=== PATIENT | male | born 1955 | race Caucasian/White ===

== ENCOUNTER 2021-08-08 21:43 | Inpatient (IN) | payer MEDICARE, BC ==
[2021-08-08 22:40] LABS: ALT (SGPT) 26 U/L (8-55); AST (SGOT) 24 U/L (5-34); Albumin 3.5 g/dL (3.4-4.8); Alkaline Phosphatase 83 U/L (40-110); Anion Gap 17 mmol/L (10-20); BUN (Urea Nitrogen) 22 mg/dL (8.4-25.7); Bilirubin, Total 1.3 mg/dL (0.2-1.2); Calc. Creatinine Clearance 0 mL/min (70-130); Calcium 8.4 mg/dL (7.8-10.44); Carbon Dioxide 17 mmol/L (23-31); Chloride 103 mmol/L (98-107); Globulin 2.3 g/dL (2.4-3.5); Glucose 221 mg/dL (80-115); Lipase 7 U/L (8-78); Potassium 4.6 mmol/L (3.5-5.1); Protein, Total 5.8 g/dL (5.8-8.1); Sodium 132 mmol/L (136-145)
[2021-08-08 22:59] LABS: Hemoglobin 11.3 g/dL (13.5-17.5); Mean Corpuscular HGB CONC 34.5 g/dL (32.0-36.0); Mean Corpuscular Hemoglobin 32.1 pg (27.0-33.0); Mean Corpuscular Volume 93.2 fl (81.2-95.1); Mean Platelet Volume 10.8 fl (7.4-10.4); RBC Distribution Width 16.7 % (11.5-14.5); Red Blood Cell (RBC) Count 3.52 10x6/uL (4.32-5.72); White Blood Cell (WBC) Count 1.2 10x3/uL (3.5-10.5)
[2021-08-08 23:03] LABS: Platelet Count 36 10x3/uL (150-450)
[2021-08-08 23:08] LABS: MDiff Complete? YES
[2021-08-08 23:21] LABS: Band 11 % (5-11); Lymphocytes 32 % (21-51); Monocytes 19 % (0-10); Neutrophil 36 % (42-75); Reactive Lymphocytes 1 % (0-10)
[2021-08-08 23:23] LABS: Platelet Morphology Comment Appears Decreased; Reflex for Review?? YES; Tear Drops SLIGHT = 2-5 cells (100X) (0-1/hpf)
[2021-08-09] MEDS ORDERED: Ondansetron PF 4 MG/2 ML Vial ONE (01:37)
[2021-08-09] MEDS ORDERED: Acetaminophen 325 MG TAB PO PRN (02:30)
[2021-08-09] MEDS ORDERED: Morphine 4 MG/ML VIAL SLOW IVP PRN (02:34)
[2021-08-09] MEDS ORDERED: Ondansetron PF 4 MG/2 ML Vial IVP PRN (02:34)
[2021-08-09] MEDS ORDERED: Promethazine HCl 25 MG in Sodium Chloride 0.9% 50 ML IVPB PRN (02:41)
[2021-08-09 02:42] LABS: SARS-CoV-2 NAA Rapid Test Not Detected (NotDetected)
[2021-08-09 03:35] VITALS: BMI 23.6
[2021-08-09] MEDS: Sodium Chloride 0.9% 1,000 ML IV SCH ×3 (03:38→23:51)
[2021-08-09] MEDS: Cefepime 2 GM in Sodium Chloride 0.9% 100 ML IVPB SCH ×3 (03:43→19:53)
[2021-08-09] MEDS ORDERED: Vancomycin 1.5 GRAM/300 ML BAG 1.5 GM in Premix Bag 1 BAG IVPB SCH (03:45)
[2021-08-09 04:44] LABS: Hemoglobin 10.3 g/dL (13.5-17.5); Mean Corpuscular HGB CONC 33.9 g/dL (32.0-36.0); Mean Corpuscular Hemoglobin 32.3 pg (27.0-33.0); Mean Corpuscular Volume 95.3 fl (81.2-95.1); Mean Platelet Volume 11.6 fl (7.4-10.4); RBC Distribution Width 16.9 % (11.5-14.5); Red Blood Cell (RBC) Count 3.19 10x6/uL (4.32-5.72); White Blood Cell (WBC) Count 1.2 10x3/uL (3.5-10.5)
[2021-08-09 04:45] LABS: Platelet Count 31 10x3/uL (150-450)
[2021-08-09 04:57] LABS: Anion Gap 16 mmol/L (10-20); BUN (Urea Nitrogen) 20 mg/dL (8.4-25.7); Calc. Creatinine Clearance 75 mL/min (70-130); Calcium 7.7 mg/dL (7.8-10.44); Carbon Dioxide 18 mmol/L (23-31); Chloride 105 mmol/L (98-107); Glucose 173 mg/dL (80-115); Magnesium 1.9 mg/dL (1.6-2.6); Potassium 4.4 mmol/L (3.5-5.1); Sodium 135 mmol/L (136-145)
[2021-08-09 05:10] LABS: MDiff Complete? YES
[2021-08-09 05:17] LABS: Band 22 % (5-11); Lymphocytes 37 % (21-51); Metamyelocyte 1 % (0-0); Monocytes 15 % (0-10); Neutrophil 22 % (42-75); Reactive Lymphocytes 2 % (0-10)
[2021-08-09 05:20] LABS: Dohle Bodies SLIGHT; Platelet Morphology Comment Appears Decreased; Tear Drops SLIGHT = 2-5 cells (100X) (0-1/hpf); Toxic Granulation SLIGHT
[2021-08-09 06:11] LABS: Lactic Acid 2.2 mmol/L (0.5-2.2)
[2021-08-09 06:36] LABS: Bilirubin Neg (Negative); Blood, Urine Negative (Negative); Clarity Slightly Cloudy (Clear); Glucose, Urine (Dipstick) 50 mg/dL (Negative); Ketone, Urine Negative (Negative); Leukocyte Negative (Negative); Nitrite Negative (Negative); Protein, Urine (Dipstick) 15 mg/dl (Neg-Trace); Specific Gravity, Urine 1.015 (1.002-1.036); Urobilinogen Normal mg/dL (Less than 2)
[2021-08-09 06:44] LABS: Bacteria/HPF None Seen HPF (None Seen); RBC/HPF 0-3 HPF (0-3); Squamous Epithelial None Seen HPF (0-3); WBC/HPF 0-3 HPF (0-3)
[2021-08-09 06:52] LABS: RBC Morphology Normal
[2021-08-09] MEDS ORDERED: Metoclopramide HCl 10 MG/2 ML VIAL IVP PRN ×2 (08:53→10:08)
[2021-08-09] MEDS ORDERED: Metoclopramide HCl 10 MG/2 ML VIAL IVP SCH (10:15)
[2021-08-09] MEDS: Ondansetron PF 4 MG/2 ML Vial IVP SCH ×3 (11:26→23:52)
[2021-08-09] MEDS ORDERED: VANCOMYCIN 1.25 GM/250 ML BAG 1.25 GM in Premix Bag 1 BAG IVPB SCH (16:00)
[2021-08-10] MEDS ORDERED: Vancomycin 1.5 GRAM/300 ML BAG 1.5 GM in Premix Bag 1 BAG IVPB SCH (04:00)
[2021-08-10] MEDS: Cefepime 2 GM in Sodium Chloride 0.9% 100 ML IVPB SCH ×3 (04:35→20:02)
[2021-08-10] MEDS: Ondansetron PF 4 MG/2 ML Vial IVP SCH ×2 (04:36→10:57)
[2021-08-10 04:37] LABS: Hemoglobin 8.6 g/dL (13.5-17.5); Mean Corpuscular Hemoglobin 32.6 pg (27.0-33.0); Mean Corpuscular Volume 95.8 fl (81.2-95.1); Mean Platelet Volume 12.7 fl (7.4-10.4); RBC Distribution Width 16.8 % (11.5-14.5); Red Blood Cell (RBC) Count 2.64 10x6/uL (4.32-5.72)
[2021-08-10 04:38] LABS: Platelet Count 17 10x3/uL (150-450)
[2021-08-10 04:49] LABS: MDiff Complete? YES
[2021-08-10 05:00] LABS: Band 8 % (5-11); Eosinophils 2 % (0-10); Lymphocytes 66 % (21-51); Monocytes 16 % (0-10); Neutrophil 6 % (42-75); Nucleated RBC 1 % (0)
[2021-08-10 05:01] LABS: Platelet Morphology Comment Appears Decreased; RBC Morphology Normal
[2021-08-10] MEDS: Sodium Chloride 0.9% 1,000 ML IV SCH ×2 (08:28→17:03)
[2021-08-10] MEDS: Ondansetron HCl/PF 8 MG, Admixture Fee 1 EACH in Sodium Chloride 0.9% 50 ML IVPB SCH ×2 (13:39→22:11)
[2021-08-10] MEDS ORDERED: hydrALAZINE 20 MG/ML VIAL SLOW IVP PRN (15:49)
[2021-08-10] MEDS ORDERED: Metoclopramide HCl 10 MG/2 ML VIAL ONE (17:01)
[2021-08-10] MEDS: Metoclopramide HCl 10 MG/2 ML VIAL IVP SCH ×2 (17:02→23:29)
[2021-08-11 04:54] LABS: ALT (SGPT) 19 U/L (8-55); AST (SGOT) 17 U/L (5-34); Albumin 3.1 g/dL (3.4-4.8); Alkaline Phosphatase 52 U/L (40-110); Anion Gap 14 mmol/L (10-20); BUN (Urea Nitrogen) 11 mg/dL (8.4-25.7); Bilirubin, Total 0.5 mg/dL (0.2-1.2); Calc. Creatinine Clearance 99 mL/min (70-130); Carbon Dioxide 14 mmol/L (23-31); Chloride 114 mmol/L (98-107); Globulin 2.2 g/dL (2.4-3.5); Glucose 103 mg/dL (80-115); Phosphorus 2.3 mg/dL (2.3-4.7); Potassium 3.6 mmol/L (3.5-5.1); Protein, Total 5.3 g/dL (5.8-8.1); Sodium 138 mmol/L (136-145)
[2021-08-11] MEDS: Sodium Chloride 0.9% 1,000 ML IV SCH ×2 (05:07→18:24)
[2021-08-11] MEDS: Metoclopramide HCl 10 MG/2 ML VIAL IVP SCH ×4 (05:07→23:24)
[2021-08-11] MEDS: Cefepime 2 GM in Sodium Chloride 0.9% 100 ML IVPB SCH ×3 (05:07→19:54)
[2021-08-11] MEDS: Ondansetron HCl/PF 8 MG, Admixture Fee 1 EACH in Sodium Chloride 0.9% 50 ML IVPB SCH ×3 (06:13→21:55)
[2021-08-11 07:54] LABS: Mean Corpuscular HGB CONC 33.8 g/dL (32.0-36.0); Mean Corpuscular Hemoglobin 31.9 pg (27.0-33.0); Mean Corpuscular Volume 94.6 fl (81.2-95.1); Mean Platelet Volume 11.2 fl (7.4-10.4); Platelet Count 40 10x3/uL (150-450); RBC Distribution Width 16.5 % (11.5-14.5); Red Blood Cell (RBC) Count 3.13 10x6/uL (4.32-5.72); White Blood Cell (WBC) Count 1.7 10x3/uL (3.5-10.5)
[2021-08-11 08:06] LABS: Anisocytosis SLIGHT = 6-15 cells (100X) (0-5/hpf); Band 9 % (5-11); Lymphocytes 55 % (21-51); MDiff Complete? YES; Monocytes 21 % (0-10); Neutrophil 13 % (42-75); Platelet Morphology Comment Appears Decreased; Tear Drops SLIGHT = 2-5 cells (100X) (0-1/hpf)
[2021-08-11] MEDS: DULoxetine 30 MG CAP PO SCH (08:42)
[2021-08-11] MEDS ORDERED: Labetalol HCl 100 MG/20 ML VIAL SLOW IVP PRN (12:12)
[2021-08-11] MEDS ORDERED: Amlodipine 5 MG TAB PO SCH (12:15)
[2021-08-11 12:55] LABS: Hemoglobin A1c 5.4 % (4.0-6.0)
[2021-08-11] MEDS: Loperamide HCl 1 MG/7.5 ML UDCUP PO PRN (15:15)
[2021-08-11] MEDS: Pantoprazole 40 MG VIAL IVP SCH (20:23)
[2021-08-12] MEDS: Sodium Chloride 0.9% 1,000 ML IV SCH (04:19)
[2021-08-12] MEDS: Cefepime 2 GM in Sodium Chloride 0.9% 100 ML IVPB SCH ×3 (04:20→19:52)
[2021-08-12] MEDS: Metoclopramide HCl 10 MG/2 ML VIAL IVP SCH ×4 (04:20→23:34)
[2021-08-12 05:08] LABS: ALT (SGPT) 19 U/L (8-55); AST (SGOT) 17 U/L (5-34); Albumin 3.1 g/dL (3.4-4.8); Alkaline Phosphatase 50 U/L (40-110); Anion Gap 10 mmol/L (10-20); BUN (Urea Nitrogen) 10 mg/dL (8.4-25.7); Bilirubin, Total 0.5 mg/dL (0.2-1.2); Calc. Creatinine Clearance 94 mL/min (70-130); Calcium 8.1 mg/dL (7.8-10.44); Carbon Dioxide 11 mmol/L (23-31); Chloride 117 mmol/L (98-107); Glucose 113 mg/dL (80-115); Phosphorus 1.7 mg/dL (2.3-4.7); Potassium 2.8 mmol/L (3.5-5.1); Protein, Total 5.1 g/dL (5.8-8.1); Sodium 135 mmol/L (136-145)
[2021-08-12] MEDS: Ondansetron HCl/PF 8 MG, Admixture Fee 1 EACH in Sodium Chloride 0.9% 50 ML IVPB SCH ×3 (05:49→22:02)
[2021-08-12] MEDS ORDERED: Potassium Chloride 20 MEQ TAB PO SCH ×2 (06:00→11:30)
[2021-08-12] MEDS ORDERED: Lactated Ringer's 1,000 ML IV SCH (06:00)
[2021-08-12] MEDS ORDERED: Potassium Phosphate 30 MMOL in Sodium Chloride 0.9% 250 ML 250 ML IVPB SCH (06:00)
[2021-08-12] MEDS ORDERED: Potassium Chloride 20 MEQ in Premix Bag 1 BAG IVPB SCH ×2 (07:15→13:00)
[2021-08-12] MEDS: PHOS-NAK 1 PKT PACK PO SCH ×2 (08:15→17:29)
[2021-08-12] MEDS: DULoxetine 30 MG CAP PO SCH (08:15)
[2021-08-12] MEDS: Amlodipine 5 MG TAB PO SCH (08:15)
[2021-08-12] MEDS: Pantoprazole 40 MG VIAL IVP SCH ×2 (08:15→19:53)
[2021-08-12 08:22] LABS: Band 13 % (5-11); Burr Cells SLIGHT = 2-5 cells (100X) (0-1/hpf); Eosinophils 1 % (0-10); Hemoglobin 9.8 g/dL (13.5-17.5); Lymphocytes 17 % (21-51); MDiff Complete? YES; Mean Corpuscular HGB CONC 34.5 g/dL (32.0-36.0); Mean Corpuscular Hemoglobin 32.3 pg (27.0-33.0); Mean Corpuscular Volume 93.7 fl (81.2-95.1); Mean Platelet Volume 12.3 fl (7.4-10.4); Monocytes 15 % (0-10); Neutrophil 53 % (42-75); Platelet Count 31 10x3/uL (150-450); Platelet Morphology Comment Appears Decreased; Poikilocytosis SLIGHT = 6-15 cells (100X) (0-5/hpf); RBC Distribution Width 16.8 % (11.5-14.5); Reactive Lymphocytes 1 % (0-10); Red Blood Cell (RBC) Count 3.03 10x6/uL (4.32-5.72); White Blood Cell (WBC) Count 7.1 10x3/uL (3.5-10.5)
[2021-08-12] MEDS: Loperamide HCl 1 MG/7.5 ML UDCUP PO PRN ×2 (08:36→12:20)
[2021-08-12 11:11] LABS: Anion Gap 10 mmol/L (10-20); BUN (Urea Nitrogen) 9 mg/dL (8.4-25.7); Calc. Creatinine Clearance 87 mL/min (70-130); Calcium 8.4 mg/dL (7.8-10.44); Carbon Dioxide 11 mmol/L (23-31); Chloride 116 mmol/L (98-107); Glucose 129 mg/dL (80-115); Sodium 134 mmol/L (136-145)
[2021-08-12 11:16] LABS: Potassium 2.9 mmol/L (3.5-5.1)
[2021-08-12] MEDS ORDERED: Magnesium 2 GM/50 ML 2 GM in Premix Bag 1 BAG IVPB SCH (12:00)
[2021-08-12] MEDS ORDERED: Potassium Chloride 40 MEQ in Premix Bag 1 BAG IVPB SCH ×2 (13:00→16:00)
[2021-08-12] MEDS ORDERED: Loperamide HCl 1 MG/7.5 ML UDCUP PO SCH (15:30)
[2021-08-12] MEDS: Loperamide HCl 2 MG CAP PO SCH ×3 (16:12→23:34)
[2021-08-12] MEDS: Diphenoxylate HCl/Atropine Tablet PO SCH ×2 (16:19→22:02)
[2021-08-12 20:32] LABS: Anion Gap 11 mmol/L (10-20); BUN (Urea Nitrogen) 8 mg/dL (8.4-25.7); Calc. Creatinine Clearance 82 mL/min (70-130); Calcium 8.3 mg/dL (7.8-10.44); Chloride 120 mmol/L (98-107); Glucose 131 mg/dL (80-115); Potassium 3.8 mmol/L (3.5-5.1); Sodium 136 mmol/L (136-145)
[2021-08-12 20:45] LABS: Carbon Dioxide 9 mmol/L (23-31)
[2021-08-12] MEDS ORDERED: [UNRECOGNIZED DRUG - REMARK] FS PRN (22:04)
[2021-08-12] MEDS ORDERED: WATER IVPB PRN (22:05)
[2021-08-12] MEDS ORDERED: PROMETHAZINE HCL IVPB PRN (22:05)
[2021-08-12] MEDS ORDERED: DEXTROSE 5% IVPB PRN (22:05)
[2021-08-13] MEDS: Metoclopramide HCl 10 MG/2 ML VIAL IVP SCH ×4 (04:20→22:28)
[2021-08-13] MEDS: Diphenoxylate HCl/Atropine Tablet PO SCH ×4 (04:20→22:28)
[2021-08-13] MEDS: Loperamide HCl 2 MG CAP PO SCH ×5 (04:20→19:58)
[2021-08-13] MEDS: CEFEPIME IVPB SCH ×3 (04:21→19:57)
[2021-08-13] MEDS: WATER IVPB SCH ×6 (04:21→23:06)
[2021-08-13] MEDS: DEXTROSE 5% IVPB SCH ×3 (04:21→19:57)
[2021-08-13 05:15] LABS: Hemoglobin 10.2 g/dL (13.5-17.5); Mean Corpuscular HGB CONC 34.1 g/dL (32.0-36.0); Mean Corpuscular Hemoglobin 32.3 pg (27.0-33.0); Mean Corpuscular Volume 94.6 fl (81.2-95.1); Mean Platelet Volume 13.2 fl (7.4-10.4); Platelet Count 31 10x3/uL (150-450); RBC Distribution Width 17.6 % (11.5-14.5); Red Blood Cell (RBC) Count 3.16 10x6/uL (4.32-5.72); White Blood Cell (WBC) Count 19.3 10x3/uL (3.5-10.5)
[2021-08-13 05:52] LABS: ALT (SGPT) 23 U/L (8-55); AST (SGOT) 22 U/L (5-34); Albumin 3.4 g/dL (3.4-4.8); Alkaline Phosphatase 76 U/L (40-110); Anion Gap 10 mmol/L (10-20); BUN (Urea Nitrogen) 8 mg/dL (8.4-25.7); Bilirubin, Total 0.4 mg/dL (0.2-1.2); Calc. Creatinine Clearance 81 mL/min (70-130); Calcium 8.4 mg/dL (7.8-10.44); Carbon Dioxide 11 mmol/L (23-31); Chloride 122 mmol/L (98-107); Glucose 118 mg/dL (80-115); Magnesium 2.4 mg/dL (1.6-2.6); Phosphorus 2.7 mg/dL (2.3-4.7); Potassium 3.5 mmol/L (3.5-5.1); Protein, Total 5.4 g/dL (5.8-8.1); Sodium 139 mmol/L (136-145)
[2021-08-13] MEDS: DEXTROSE IVPB SCH ×3 (06:20→23:06)
[2021-08-13] MEDS: ADMIXTURE FEE IVPB SCH ×3 (06:20→23:06)
[2021-08-13] MEDS: ONDANSETRON HCL IVPB SCH ×3 (06:20→23:06)
[2021-08-13 07:29] LABS: Platelet Morphology Comment Appears Decreased
[2021-08-13 07:38] LABS: Band 8 % (5-11); Lymphocytes 11 % (21-51); Metamyelocyte 1 % (0-0); Monocytes 7 % (0-10); Neutrophil 69 % (42-75); Nucleated RBC 1 % (0); Reactive Lymphocytes 4 % (0-10)
[2021-08-13] MEDS: Pantoprazole 40 MG VIAL IVP SCH ×2 (08:05→21:29)
[2021-08-13] MEDS: Amlodipine 5 MG TAB PO SCH (08:05)
[2021-08-13] MEDS: DULoxetine 30 MG CAP PO SCH (08:05)
[2021-08-13 09:05] LABS: MDiff Complete? YES
[2021-08-13] MEDS: Sodium Bicarbonate Tab 325 MG TAB PO SCH ×3 (12:21→21:30)
[2021-08-13] MEDS ORDERED: Lactated Ringer's 500 ML IV SCH (18:00)
[2021-08-13] MEDS: Lactated Ringer's 1,000 ML IV SCH (18:50)
[2021-08-13] MEDS ORDERED: Sodium Bicarb 50 MEQ/50 ML Abboject 8.4% SYRINGE IVP SCH (19:00)
[2021-08-13] MEDS: Potassium Chloride 20 MEQ in Premix Bag 1 BAG IVPB SCH (23:07)
[2021-08-14] MEDS: Loperamide HCl 2 MG CAP PO SCH ×6 (00:40→20:47)
[2021-08-14] MEDS: Potassium Chloride 20 MEQ in Premix Bag 1 BAG IVPB SCH (01:48)
[2021-08-14] MEDS: Diphenoxylate HCl/Atropine Tablet PO SCH ×4 (03:52→21:55)
[2021-08-14] MEDS: DEXTROSE 5% IVPB SCH ×3 (03:52→20:46)
[2021-08-14] MEDS: CEFEPIME IVPB SCH ×3 (03:52→20:46)
[2021-08-14] MEDS: WATER IVPB SCH ×6 (03:52→21:50)
[2021-08-14] MEDS: Lactated Ringer's 1,000 ML IV SCH (04:16)
[2021-08-14] MEDS: Metoclopramide HCl 10 MG/2 ML VIAL IVP SCH ×4 (04:54→22:40)
[2021-08-14] MEDS: ADMIXTURE FEE IVPB SCH ×3 (06:15→21:50)
[2021-08-14] MEDS: ONDANSETRON HCL IVPB SCH ×3 (06:15→21:50)
[2021-08-14] MEDS: DEXTROSE IVPB SCH ×3 (06:15→21:50)
[2021-08-14 07:30] LABS: Hemoglobin 8.8 g/dL (13.5-17.5); Mean Corpuscular HGB CONC 35.9 g/dL (32.0-36.0); Mean Corpuscular Hemoglobin 33.5 pg (27.0-33.0); Mean Corpuscular Volume 93.2 fl (81.2-95.1); Mean Platelet Volume 11.6 fl (7.4-10.4); Platelet Count 21 10x3/uL (150-450); RBC Distribution Width 17.8 % (11.5-14.5); Red Blood Cell (RBC) Count 2.63 10x6/uL (4.32-5.72); White Blood Cell (WBC) Count 12.4 10x3/uL (3.5-10.5)
[2021-08-14 07:56] LABS: ALT (SGPT) 21 U/L (8-55); AST (SGOT) 20 U/L (5-34); Albumin 2.9 g/dL (3.4-4.8); Alkaline Phosphatase 76 U/L (40-110); Anion Gap 11 mmol/L (10-20); BUN (Urea Nitrogen) 5 mg/dL (8.4-25.7); Bilirubin, Total 0.5 mg/dL (0.2-1.2); Calc. Creatinine Clearance 87 mL/min (70-130); Carbon Dioxide 16 mmol/L (23-31); Chloride 112 mmol/L (98-107); Globulin 1.8 g/dL (2.4-3.5); Glucose 85 mg/dL (80-115); Magnesium 1.9 mg/dL (1.6-2.6); Phosphorus 1.5 mg/dL (2.3-4.7); Protein, Total 4.7 g/dL (5.8-8.1); Sodium 136 mmol/L (136-145)
[2021-08-14 08:46] LABS: Anisocytosis SLIGHT = 6-15 cells (100X) (0-5/hpf); Poikilocytosis SLIGHT = 6-15 cells (100X) (0-5/hpf); Polychromasia SLIGHT = 2-3 cells (100X) (0-2/hpf); Reflex for Review?? YES
[2021-08-14 08:47] LABS: Platelet Morphology Comment Appears Decreased; Schistocytes SLIGHT = 2-5 cells (100X) (0-1/hpf); Tear Drops SLIGHT = 2-5 cells (100X) (0-1/hpf)
[2021-08-14] MEDS ORDERED: Potassium Bicarbonate/Cit Ac 20 MEQ TAB PO SCH (09:00)
[2021-08-14] MEDS ORDERED: PHOS-NAK 1 PKT PACK PO SCH (09:00)
[2021-08-14] MEDS: Pantoprazole 40 MG VIAL IVP SCH ×2 (09:14→20:47)
[2021-08-14] MEDS: DULoxetine 30 MG CAP PO SCH (09:14)
[2021-08-14] MEDS: Amlodipine 5 MG TAB PO SCH (09:14)
[2021-08-14] MEDS: Sodium Bicarbonate Tab 325 MG TAB PO SCH ×4 (09:19→20:47)
[2021-08-14] MEDS ORDERED: Potassium ACETATE 40 MEQ/20 ML VIAL IV SCH (12:15)
[2021-08-14] MEDS ORDERED: Potassium Phosphate 30 MMOL in Sodium Chloride 0.9% 500 ML IVPB SCH (13:30)
[2021-08-14 19:06] LABS: Band 2 % (5-11); Eosinophils 1 % (0-10); Lymphocytes 13 % (21-51); Monocytes 8 % (0-10); Neutrophil 76 % (42-75)
[2021-08-14 19:07] LABS: MDiff Complete? YES
[2021-08-14] MEDS ORDERED: Potassium Chloride 40 MEQ in Premix Bag 1 BAG IVPB SCH (20:00)
[2021-08-15] MEDS: Loperamide HCl 2 MG CAP PO SCH ×4 (00:07→12:00)
[2021-08-15 04:18] LABS: Hemoglobin 7.9 g/dL (13.5-17.5); Mean Corpuscular HGB CONC 35.4 g/dL (32.0-36.0); Mean Corpuscular Hemoglobin 33.1 pg (27.0-33.0); Mean Corpuscular Volume 93.3 fl (81.2-95.1); Mean Platelet Volume 12.3 fl (7.4-10.4); Platelet Count 23 10x3/uL (150-450); RBC Distribution Width 17.9 % (11.5-14.5); Red Blood Cell (RBC) Count 2.39 10x6/uL (4.32-5.72); White Blood Cell (WBC) Count 9.8 10x3/uL (3.5-10.5)
[2021-08-15 04:21] LABS: MDiff Complete? YES
[2021-08-15] MEDS: WATER IVPB SCH ×3 (04:38→11:58)
[2021-08-15] MEDS: DEXTROSE 5% IVPB SCH ×2 (04:38→11:58)
[2021-08-15] MEDS: CEFEPIME IVPB SCH ×2 (04:38→11:58)
[2021-08-15] MEDS: Diphenoxylate HCl/Atropine Tablet PO SCH ×2 (04:38→09:05)
[2021-08-15] MEDS: Metoclopramide HCl 10 MG/2 ML VIAL IVP SCH ×2 (04:38→12:00)
[2021-08-15 05:01] LABS: ALT (SGPT) 20 U/L (8-55); AST (SGOT) 19 U/L (5-34); Albumin 2.7 g/dL (3.4-4.8); Alkaline Phosphatase 73 U/L (40-110); Anion Gap 10 mmol/L (10-20); BUN (Urea Nitrogen) 5 mg/dL (8.4-25.7); Bilirubin, Total 0.4 mg/dL (0.2-1.2); Calc. Creatinine Clearance 95 mL/min (70-130); Calcium 7.7 mg/dL (7.8-10.44); Carbon Dioxide 19 mmol/L (23-31); Chloride 109 mmol/L (98-107); Globulin 1.6 g/dL (2.4-3.5); Glucose 89 mg/dL (80-115); Magnesium 1.8 mg/dL (1.6-2.6); Phosphorus 2.8 mg/dL (2.3-4.7); Protein, Total 4.3 g/dL (5.8-8.1); Sodium 135 mmol/L (136-145)
[2021-08-15] MEDS: ADMIXTURE FEE IVPB SCH (06:06)
[2021-08-15] MEDS: ONDANSETRON HCL IVPB SCH (06:06)
[2021-08-15] MEDS: DEXTROSE IVPB SCH (06:06)
[2021-08-15 07:28] LABS: Band 5 % (5-11); Lymphocytes 30 % (21-51); Monocytes 8 % (0-10); Neutrophil 56 % (42-75)
[2021-08-15 07:30] LABS: Platelet Morphology Comment Appears Decreased; RBC Morphology Normal
[2021-08-15] MEDS ORDERED: Potassium Chloride 20 MEQ TAB PO SCH (08:00)
[2021-08-15] MEDS: Pantoprazole 40 MG VIAL IVP SCH (09:04)
[2021-08-15] MEDS: DULoxetine 30 MG CAP PO SCH (09:04)
[2021-08-15] MEDS: Sodium Bicarbonate Tab 325 MG TAB PO SCH ×2 (09:05→12:05)
[2021-08-15 13:02] VITALS: BP 105/56; TEMP 97
== END 2021-08-15 13:43 | disposition home or self-care (01) | DRG 809 ==
LOC: CSHERS 21:43 → CSHTELE 21:44
PROVIDERS: ADMIT Family Medicine; ATTEND Hospitalist
PROC: 30233R1 Transfusion of Nonautologous Platelets into Peripheral Vein, Percutaneous Approach (ICD-10-PCS; principal; 2021-08-10)
DX: D70.9 Neutropenia, unspecified (principal); C78.7 Secondary malignant neoplasm of liver and intrahepatic bile duct; C25.9 Malignant neoplasm of pancreas, unspecified; E87.2 Acidosis; K52.1 Toxic gastroenteritis and colitis; Z20.822 Contact with and (suspected) exposure to COVID-19; R50.81 Fever presenting with conditions classified elsewhere; T45.1X5A Adverse effect of antineoplastic and immunosuppressive drugs, initial encounter; R11.2 Nausea with vomiting, unspecified; R73.9 Hyperglycemia, unspecified; E86.9 Volume depletion, unspecified; I95.9 Hypotension, unspecified; D61.810 Antineoplastic chemotherapy induced pancytopenia; E87.6 Hypokalemia; Z92.21 Personal history of antineoplastic chemotherapy
CPT/HCPCS: 36415; 36416; 36430; 71045; 74177; 80048; 80053; 81001; 82274; 83036; 83605; 83630; 83690; 83735; 84100; 85007; 85025; 85027; 85060; 86850; 86900; 86901; 87040; 87045; 87046; 87177; 87324; 87427; 87449; 87804; 93005; 93010; 96374; C9113; J0360; J0692; J2405; J2765; J3370; J3475; J3480; J3490; J7030; J7050; J7070; J7120; P9035; U0002

== ENCOUNTER 2022-02-21 09:02 | Outpatient (CLI) | payer MEDICARE, BC ==
[2022-02-21] MEDS ORDERED: Iopamidol 300 61% 100 ML VIAL FS ONE (10:24)
== END 2022-02-21 09:03 | disposition home or self-care (01) ==
LOC: CSHCT 09:02
PROVIDERS: ATTEND Internal Medicine Hematology & Oncology
DX: C25.2 Malignant neoplasm of tail of pancreas (principal); C78.7 Secondary malignant neoplasm of liver and intrahepatic bile duct; R91.8 Other nonspecific abnormal finding of lung field
CPT/HCPCS: 71260; 74177; 82565

== ENCOUNTER 2022-09-12 10:34 | Outpatient (CLI) | payer MEDICARE, BC ==
[2022-09-12] MEDS ORDERED: Iopamidol 300 61% 100 ML VIAL FS ONE (13:46)
== END 2022-09-12 10:35 | disposition home or self-care (01) ==
LOC: CSHCT 10:34
PROVIDERS: ATTEND Internal Medicine Hematology & Oncology
DX: C25.9 Malignant neoplasm of pancreas, unspecified (principal); R91.8 Other nonspecific abnormal finding of lung field; C78.7 Secondary malignant neoplasm of liver and intrahepatic bile duct
CPT/HCPCS: 71260; 74177; Q9967